=== PATIENT | male | born 1970 | race Caucasian/White ===

== ENCOUNTER 2017-07-16 16:26 | Emergency (ER) | payer MEDICAID ==
--- NOTE | 2017-07-16 16:57 | EDPHY ---
H & P Stated Complaint: episope of blurred vision, resolved [employer] Time Seen by Provider: 07/16/17 16:57 HPI/ROS: HPI: This is a 47-year-old male who presents with Chief Complaint: episode of blurred vision, resolved [employer] Location: bilateral eyes Quality: Blurred vision Duration: 1 hr prior to arrival Signs and Symptoms: no fever, no nausea, no vomiting, no photophobia, no noise sensitivity, no neck stiffness, no ear pain, no tinnitus, no nasal congestion, no sinus pressure, no weakness, no radiation, no aura Timing: Lasted approximately 15 min and self-resolved Severity: Moderate Context: Patient reports that he is generally healthy, recently had laboratory workup 1 month ago that was unremarkable including cholesterol and lipid panel, was talking on the phone holding it between his ear and right shoulder for over an hour and half. After getting off the phone he noted bilateral pleural vision and dizziness that was not exacerbated by certain positions. Patient reports that there has been 2 other incidences throughout his life. One was when he was painting using his right hand for long periods of time with repetitive up and down motion; he became extremely nauseous and dizzy. No history of cardiac disease or stroke. No significant family history. Patient denies being under unusual stress. He has been playing basketball lately and has noted some upper back discomfort and achiness. He has tried no over-the- counter medications for the symptoms. Wears glasses and has yearly eye exams. Last ophthalmology exam was approximately 2 months ago with normal intra-ocular pressures at that time. Modifying Factors: None Comment: ROS: see HPI Constitutional: No fever, no chills, no weight loss Eyes: No blurred vision Respiratory: No shortness of breath, no cough Cardiovascular: No chest pain, no palpitations Gastrointestinal: No nausea, no vomiting, no diarrhea, no hematemesis, no blood in stool Genitourinary: No dysuria, no blood in urine Extremities: No myalgias, no edema Neurologic: No weakness, no numbness Skin: No rashes, no petechiae Hematologic: No bruising, no bleeding MEDICAL/SURGICAL/SOCIAL HISTORY: Medical history: Generally healthy. Does not take any regular medications. Surgical history: Denies Social history: . Employed. CONSTITUTIONAL: awake and alert, no obvious distress HEENT: Atraumatic and normocephalic, PERRL, EOMI. Tympanic membranes clear. Oropharynx clear, no exudate and moist pink mucosa. Airway patent. No lymphadenopathy. No meningismus. NECK: supple, no midline tenderness, flexion 45 degrees, extension 45 degrees, mild discomfort with right and left lateral flexion 45 degrees. No meningismus. No carotid bruits appreciated. Cardiovascular: Normal S1/S2, regular rate, regular rhythm, without murmur rub or gallop. PULMONARY/CHEST: Symmetrical and nontender. Clear to auscultation bilaterally. Good air movement. No accessory muscle usage. ABDOMEN: Soft, nondistended, nontender, no rebound, no guarding, no peritoneal signs, no masses or organomegaly. No CVAT. BACK: No midline tenderness, left thoracic moderate paraspinous spasm noted with reproducible tenderness over the muscle strain, deep tendon reflexes 2/2, no pain with straight leg raise, No foot drop. Achilles reflexes are equal bilaterally. Able to walk on heels and toes without difficulty. EXTREMITIES: 2/2 pulses, strength 5/5, no deformities, no clubbing, no cyanosis or edema. NEUROLOGICAL: no focal neuro deficits. GCS 15. Cranial nerves 2-12 grossly intact. NIHSS stroke scale = 0 SKIN: Warm and dry, no erythema. no rash. Good capillary refill. Source: Patient, Family () Exam Limitations: No limitations - Personal History Current Tetanus Diphtheria and Acellular Pertussis (TDAP): Yes - Medical/Surgical History Hx Asthma: No Hx Chronic Respiratory Disease: No Hx Diabetes: No Hx Cardiac Disease: No Hx Renal Disease: No Hx Cirrhosis: No Hx Alcoholism: No Hx HIV/AIDS: No Hx Splenectomy or Spleen Trauma: No Other PMH: none - Social History Smoking Status: Never smoked Constitutional: Initial Vital Signs Heart Rate 59 L 07/16/17 16:35 Respiratory Rate 16 07/16/17 16:35 Blood Pressure 122/72 H 07/16/17 16:35 O2 Sat (%) 96 07/16/17 16:35 O2 Delivery Mode Room Air Allergies/Adverse Reactions: No Known Allergies Allergy (Unverified 07/16/17 16:34) Home Medications: Medication Instructions Recorded NK [No Known Home Meds] 07/16/17 Medical Decision Making ED Course/Re-evaluation: Long discussion with patient and regarding MRI imaging of the brain, and imaging of the cervical spine, laboratory workup. Due to the history of having thoracic muscle spasm; patient and have politely declined in her further workup. They are [facility] patients and extremely worried about cost. Due to the history and physical exam; patient and believe this is all musculoskeletal related. Patient prefers to have further outpatient workup if needed. No signs of CVA/glaucoma/conjunctivitis/temporal arteritis/meningitis/sepsis This patient was seen under the supervision of my secondary supervising physician. I evaluated care for this patient independently. Differential Diagnosis: Dizziness including but not limited to peripheral and central causes of vertigo , orthostatic causes including dehydration, and blood loss. Departure - Departure Disposition: Home, Routine, Self-Care Clinical Impression: Cervical paraspinal muscle spasm, Spasm of thoracic back muscle Condition: Good Instructions: Blurred Vision (ED), Muscle Spasm (ED) Additional Instructions: Please follow-up with primary care provider for routine laboratory work and MRI brain and/or MRI cervical if symptoms persist. Follow proper ergonomics while talking on the phone, performing repetitive activities. Perform gentle stretching exercises and receive massage therapy. Return to the ER immediately if you have progressive headaches, neurologic deficits, gait abnormality, visual disturbance, slurred speech, or any other symptom that concerns you. Referrals: PCP Not In,Dictionary [Medical Doctor] - As per Instructions
[2017-07-16 17:53] VITALS: BP 99/67
== END 2017-07-16 17:56 | disposition home or self-care (01) ==
DX: M62.830 Muscle spasm of back (principal)